=== PATIENT | female | born 1990 | race African-American/Black ===

== ENCOUNTER 2019-01-01 14:04 | Inpatient (IN) | payer OTHER ==
[~2019-01-01] VITALS: Ht 157.5 cm; Wt 79.8 kg
[~2019-01-01 14:04] MED LIST: EPHEDRINE SULFATE 50MG/ML VIAL ONE; LIDOCAINE HCL 2%/EPINEPHRINE 1:100,000 20 ML VIAL INFIL ONE; Prenatal vitamin
[2019-01-01] MEDS ORDERED: BUTORPHANOL TARTRATE 2 MG/ML VIAL IV PRN (15:30)
[2019-01-01] MEDS ORDERED: ACETAMINOPHEN 325MG TABLET PO NR (15:45)
[2019-01-01] MEDS ORDERED: DEXT 5%/LR + PITOCIN 20UNITS/L 1,000 ML IV SCH (16:05)
[2019-01-01] MEDS: LACTATED RINGERS 1,000 ML IV SCH ×3 (16:07→21:11)
[2019-01-01] MEDS ORDERED: METHYLERGONOVINE MALEATE 0.2 MG/ML IM PRN (16:15)
[2019-01-01] MEDS ORDERED: LIDOCAINE HCL 1% 20ML VIAL (Pyxis) INJ INFIL SCH (16:15)
[2019-01-01] MEDS ORDERED: ROPIVACAINE HCL/PF EPIDURAL 200 ML EPI SCH (20:30)
[2019-01-02] MEDS ORDERED: CITRIC ACID/SODIUM CITRATE SOLN 30ML UDC PO NR (03:45)
[2019-01-02] MEDS ORDERED: CEFAZOLIN SODIUM 1000MG/VIAL ONE (03:52)
[2019-01-02] MEDS ORDERED: EPHEDRINE SULFATE 50MG/ML VIAL ONE (03:52)
[2019-01-02] MEDS ORDERED: OXYTOCIN 10 UNITS/ML 1ML ONE ×2 (03:52→04:36)
[2019-01-02] MEDS ORDERED: PHENYLEPHRINE HCL 10 MG/ML 1ML (IV VIAL) IV ONE (03:52)
[2019-01-02] MEDS ORDERED: SODIUM CHLORIDE 0.9% 10ML VIAL ONE ×3 (03:53→03:56)
[2019-01-02] MEDS ORDERED: ONDANSETRON HCL 4MG/2ML INJ ONE (03:58)
[2019-01-02] MEDS ORDERED: FENTANYL CITRATE/PF 50MCG/ML 2ML VIAL ONE (04:00)
[2019-01-02] MEDS ORDERED: MORPHINE SULFATE/PF 1MG/ML 10ML AMP ONE (04:00)
[2019-01-02] MEDS ORDERED: DIPHENHYDRAMINE 50MG/ML VIAL IV PRN (05:45)
[2019-01-02] MEDS ORDERED: MEPERIDINE HCL/PF 25MG/ML CPJ IV PRN (05:45)
[2019-01-02] MEDS ORDERED: METOCLOPRAMIDE HCL 10MG/2ML VIAL IV PRN (05:45)
[2019-01-02] MEDS ORDERED: ONDANSETRON HCL 4MG/2ML INJ IV PRN ×2 (05:45→07:15)
[2019-01-02] MEDS ORDERED: KETOROLAC 30MG/ML VIAL IV PRN (05:45)
[2019-01-02] MEDS ORDERED: DEXT 5%/LR + PITOCIN 20UNITS/L 1,000 ML IV SCH (07:09)
[2019-01-02] MEDS ORDERED: HYDROCODONE/ACETAMINOPHEN 5/325MG TABLET PO PRN (07:15)
[2019-01-02] MEDS ORDERED: RHO(D) IMMUNE GLOBULIN 300 MCG/SYR IM PRN (07:15)
[2019-01-02] MEDS ORDERED: LANOLIN OINT 7GM TUBE TOP PRN (07:15)
[2019-01-02] MEDS ORDERED: BISACODYL 10MG SUPP PR PRN (07:15)
[2019-01-02 09:20] VITALS: BP 112/58
[2019-01-02 09:55] VITALS: BP 106/63
[2019-01-02] MEDS ORDERED: DEXT 5%/LR + PITOCIN 20UNITS/L 1,000 ML IV ONE (14:37)
[2019-01-02 15:17] VITALS: BP 107/60
[2019-01-02 20:00] VITALS: BP 109/65
[2019-01-02] MEDS ORDERED: DOCUSATE SODIUM 100MG CAPSULE PO SCH (21:00)
[2019-01-02] MEDS: ACETAMINOPHEN WITH CODEINE 300/30MG TABLET PO PRN (21:34)
[2019-01-03] VITALS: BP 108/59
[2019-01-03 04:00] VITALS: BP 110/63
[2019-01-03] MEDS: ACETAMINOPHEN WITH CODEINE 300/30MG TABLET PO PRN ×3 (04:19→16:04)
[2019-01-03] MEDS: SIMETHICONE 80MG TABLET CHEW PO SCH ×4 (05:31→21:07)
[2019-01-03 07:45] LABS: BASOPHILS % 0.3 % (0.0-2.0); EOSINOPHILS % 0.9 % (0.0-5.0); HEMATOCRIT. 31.2 % (36.0-48.0); HEMOGLOBIN. 10.9 g/dL (12.0-16.0); LYMPHOCYTES % 18.1 % (20.0-50.0); MEAN CORPUSCULAR HEMOGLOBIN 31.3 pg (28.0-32.0); MEAN CORPUSCULAR VOLUME 90.2 fL (81.0-99.0); MEAN PLATELET VOLUME 8.6 fl (7.4-10.4); MONOCYTES % 9.4 % (2.0-8.0); NEUTROPHILS % 71.3 % (40.0-76.0); PLATELET 140 x1000/uL (130-400); RED BLOOD CELL COUNT 3.46 mill/uL (4.2-5.4); RED CELL DISTRIBUTION WIDTH 14.1 % (11.6-14.6)
[2019-01-03] MEDS: PRENATAL VIT/FE FUMARATE/FA TABLET PO SCH (08:54)
[2019-01-03 11:57] VITALS: BP 125/75
[2019-01-03 16:00] VITALS: BP 129/69
[2019-01-03] MEDS: IBUPROFEN 400MG TABLET PO PRN (21:15)
[2019-01-03 22:00] VITALS: BP 117/71
[2019-01-04 06:00] VITALS: BP 112/68
[2019-01-04] MEDS: PRENATAL VIT/FE FUMARATE/FA TABLET PO SCH (07:42)
[2019-01-04] MEDS: SIMETHICONE 80MG TABLET CHEW PO SCH (07:43)
[2019-01-04] MEDS: IBUPROFEN 400MG TABLET PO PRN (07:43)
[2019-01-04 08:00] VITALS: BP 114/64
== END 2019-01-04 11:20 | disposition home or self-care (01) | DRG 540 ==
LOC: OBSVTOIN 14:04 → 8 EST LDRP 14:04 → 8EST 01-02 09:20
PROVIDERS: ADMIT Obstetrics & Gynecology; ATTEND Obstetrics & Gynecology
PROC: 10D00Z1 Extraction of Products of Conception, Low, Open Approach (ICD-10-PCS; principal; 2019-01-01)
DX: O77.0 Labor and delivery complicated by meconium in amniotic fluid (principal); O62.0 Primary inadequate contractions; O76 Abnormality in fetal heart rate and rhythm complicating labor and delivery; Z37.0 Single live birth; Z3A.39 39 weeks gestation of pregnancy; O69.81X0 Labor and delivery complicated by cord around neck, without compression, not applicable or unspecified
CPT/HCPCS: 36415; 86850; 86900; 88307; G0378; J0595; J0690; J1885; J2274; J2370; J2405; J2590; J2795; J3010; J3490